=== PATIENT | female | born 1985 | race Caucasian/White ===

== ENCOUNTER → 2025-01-23 08:22 | Outpatient (REF) | payer OTHER, SELFPAY | LOC: PNTC 08:22 | PROVIDERS: ATTENDING PHYSICIAN Obstetrics & Gynecology | DX: O36.80X0 Pregnancy with inconclusive fetal viability, not applicable or unspecified (principal) | CPT/HCPCS: 76801; 76817 ==

== ENCOUNTER → 2025-02-05 15:45 | Outpatient (REF) | payer OTHER, SELFPAY | LOC: PNTC 15:45 | PROVIDERS: ATTENDING PHYSICIAN Obstetrics & Gynecology | DX: Z36.0 Encounter for antenatal screening for chromosomal anomalies (principal); Z36.82 Encounter for antenatal screening for nuchal translucency | CPT/HCPCS: 36415; 76801; 76813 ==

== ENCOUNTER → 2025-04-08 07:51 | Outpatient (REF) | payer OTHER, SELFPAY | LOC: PNTC 07:51 | PROVIDERS: ATTENDING PHYSICIAN Obstetrics & Gynecology | DX: O09.529 Supervision of elderly multigravida, unspecified trimester (principal) | CPT/HCPCS: 76811; 76817 ==

== ENCOUNTER → 2025-05-15 11:30 | Outpatient (REF) | payer OTHER, SELFPAY | LOC: PNTC 11:30 | PROVIDERS: ATTENDING PHYSICIAN Obstetrics & Gynecology | DX: O09.529 Supervision of elderly multigravida, unspecified trimester (principal) | CPT/HCPCS: 76816 ==

== ENCOUNTER → 2025-06-26 14:41 | Outpatient (REF) | payer OTHER, SELFPAY | LOC: PNTC 14:41 | PROVIDERS: ATTENDING PHYSICIAN Obstetrics & Gynecology | DX: O09.529 Supervision of elderly multigravida, unspecified trimester (principal) | CPT/HCPCS: 76816 ==

== ENCOUNTER → 2025-07-17 11:07 | Outpatient (REF) | payer OTHER, SELFPAY | LOC: PNTC 11:07 | PROVIDERS: ATTENDING PHYSICIAN Obstetrics & Gynecology | DX: O09.523 Supervision of elderly multigravida, third trimester (principal) | CPT/HCPCS: 59025; 76815 ==

== ENCOUNTER → 2025-07-24 11:00 | Outpatient (REF) | payer OTHER, SELFPAY | LOC: PNTC 11:00 | PROVIDERS: ATTENDING PHYSICIAN Obstetrics & Gynecology | DX: O09.523 Supervision of elderly multigravida, third trimester (principal) | CPT/HCPCS: 59025; 76816 ==

== ENCOUNTER → 2025-07-31 11:07 | Outpatient (REF) | payer OTHER, SELFPAY | LOC: PNTC 11:07 | PROVIDERS: ATTENDING PHYSICIAN Obstetrics & Gynecology | DX: O09.523 Supervision of elderly multigravida, third trimester (principal) | CPT/HCPCS: 59025; 76815; 86850; 86900; 86901; J2790 ==

== ENCOUNTER → 2025-08-07 06:46 | Outpatient (REF) | payer OTHER, SELFPAY | LOC: PNTC 06:46 | PROVIDERS: ATTENDING PHYSICIAN Obstetrics & Gynecology | DX: O09.523 Supervision of elderly multigravida, third trimester (principal) | CPT/HCPCS: 59025; 76815 ==

== ENCOUNTER → 2025-08-14 11:01 | Outpatient (REF) | payer OTHER, SELFPAY | LOC: PNTC 11:01 | PROVIDERS: ATTENDING PHYSICIAN Obstetrics & Gynecology | DX: O09.523 Supervision of elderly multigravida, third trimester (principal) | CPT/HCPCS: 59025; 76815 ==

== ENCOUNTER 2025-08-15 21:40 | Inpatient (IN) | payer OTHER, SELFPAY ==
[2025-08-15 21:48] VITALS: BMI 35.2
[2025-08-15 22:06] VITALS: BP 115/67
[2025-08-15 22:55] LABS: Glucose - Point of Care 108 mg/dl (70-99)
[2025-08-15] MEDS: LR 1000 IV (23:10)
[2025-08-15] MEDS: PENICILLIN 110 UNITS IV (23:11)
[2025-08-15 23:21] LABS: Hematocrit 30.2 % (37.0-47.0); Hemoglobin 10.9 g/dL (12.0-16.0); Mean Corp Hgb Conc. 36.1 g/dL (33.0-37.0); Mean Corpuscular Volume 87.5 fL (81.0-99.0); Nucleated Red Blood Cells % 0 %; Platelet Count 360 10^3/uL (130-400); Red Cell Dist. Width 12.8 % (11.5-14.5)
[2025-08-16] MEDS: SUBLIMAZE 100 MCG EPIDURAL (00:26)
[2025-08-16] MEDS: FENTANYL/BUPIVACAINE 100 EPIDURAL ×2 (00:26→09:05)
[2025-08-16 02:17] LABS: Glucose - Point of Care 110 mg/dl (70-99)
[2025-08-16] MEDS: PENICILLIN 55 UNITS IV ×2 (03:02→07:05)
[2025-08-16] MEDS: LR 1000 IV (03:47)
[2025-08-16 04:20] LABS: Glucose - Point of Care 107 mg/dl (70-99)
[2025-08-16] MEDS: TUMS CHEWABLE TABLET 400 MG PO (04:49)
[2025-08-16 06:18] LABS: Glucose - Point of Care 99 mg/dl (70-99)
[2025-08-16 08:12] LABS: Glucose - Point of Care 86 mg/dl (70-99)
[2025-08-16] MEDS: PITOCIN 30 UNITS/NSS 500 ML IV (09:59)
[2025-08-16] MEDS: COLACE 100 MG PO (19:17)
[2025-08-16] MEDS: MOTRIN 600 MG PO (19:17)
[2025-08-17] MEDS: TYLENOL 650 MG PO ×3 (00:34→09:54)
[2025-08-17] MEDS: MOTRIN 600 MG PO ×3 (05:08→21:27)
[2025-08-17 05:30] LABS: Hematocrit 28.0 % (37.0-47.0); Hemoglobin 9.8 g/dL (12.0-16.0)
[2025-08-17] MEDS: COLACE 100 MG PO ×2 (09:53→20:13)
[2025-08-17] MEDS: FEOSOL 325 MG PO (09:53)
[2025-08-17] MEDS: PRENATAL PLUS 1 TABLET PO (09:54)
[2025-08-17] MEDS: DILAUDID 2 MG PO ×2 (10:59→20:13)
[2025-08-17] MEDS: RHOGAM 300 MCG IM (15:37)
[2025-08-18] MEDS: DILAUDID 2 MG PO ×2 (03:48→09:17)
[2025-08-18] MEDS: MOTRIN 600 MG PO (03:49)
[2025-08-18] MEDS: PRENATAL PLUS 1 TABLET PO (08:36)
[2025-08-18] MEDS: FEOSOL 325 MG PO (08:36)
[2025-08-18] MEDS: COLACE 100 MG PO (08:36)
[2025-08-20 12:28] LABS: Syphilis/T. pallidum Ab Reflex Negative (Negative)
== END 2025-08-18 12:44 | disposition home or self-care (01) | DRG 807 ==
LOC: LDRP 21:40
PROVIDERS: Obstetrics & Gynecology; ADMITTING PHYSICIAN Student in an Organized Health Care Education/Training Program
PROC: 10E0XZZ Delivery of Products of Conception, External Approach (ICD-10-PCS; 2025-08-16)
PROC: 0KQM0ZZ Repair Perineum Muscle, Open Approach (ICD-10-PCS; 2025-08-16)
PROC: 3E0234Z Introduction of Serum, Toxoid and Vaccine into Muscle, Percutaneous Approach (ICD-10-PCS; 2025-08-17)
DX: O99.824 Streptococcus B carrier state complicating childbirth (principal); Z37.0 Single live birth; Z3A.39 39 weeks gestation of pregnancy; O70.1 Second degree perineal laceration during delivery; O34.219 Maternal care for unspecified type scar from previous cesarean delivery; N85.8 Other specified noninflammatory disorders of uterus; O77.0 Labor and delivery complicated by meconium in amniotic fluid; O09.523 Supervision of elderly multigravida, third trimester
CPT/HCPCS: 36415; 82962; 85014; 85018; 85025; 85461; 86780; 86850; 86870; 86900; 86901; 88307; J2790